=== PATIENT | male | born 1965 | race Two or more races ===

== ENCOUNTER → 2017-10-11 | Emergency (ER) | payer MEDICARE, OTHER ==
[~2017-10-11] VITALS: Ht 170.2 cm; Wt 68.0 kg
[~2017-10-11] MED LIST: BACTRIM DS TAB1 EAC1 ORAL; CEPHALEXIN500 MG ORAL; NKM
[2017-10-11 16:30] VITALS: BP 165/75
--- NOTE | 2017-10-15 14:05 | Emergency Room Report ---
History of Present Illness General Chief Complaint: Skin Rash/Abscess Source: Patient Present Illness HPI 52-year-old male presents ED for evaluation. Patient complains of a redness and hard nodule to his right index finger for the last 2 days. Cannot recall any recent injury. States he is diabetic. Pain is dull, 5 out of 10, nonradiating. Denies any discharge. No other aggravating relieving factors. Denies any other associated symptoms Allergies: Coded Allergies: No Known Allergies (Unverified , 10/11/17) Patient History Past Medical History: DM Past Surgical History: none Pertinent Family History: none Social History: Denies: smoking, alcohol use, drug use Immunizations: UTD Reviewed Nursing Documentation: PMH: Agreed; PSxH: Agreed Nursing Documentation-PMH Past Medical History: No History, Except For Hx Diabetes: Yes Review of Systems All Other Systems: negative except mentioned in HPI Physical Exam Vital Signs Date Time Temp Pulse Resp B/P (MAP) Pulse Ox O2 Delivery O2 Flow Rate FiO2 10/11/17 15:53 98.1 72 16 165/75 97 Room Air 98.1 Sp02 EP Interpretation: reviewed, normal General Appearance: no apparent distress, alert, GCS 15, non-toxic Head: normocephalic Eyes: bilateral eye normal inspection, bilateral eye PERRL ENT: normal ENT inspection Neck: normal inspection Respiratory: normal inspection Cardiovascular #1: normal inspection Gastrointestinal: normal inspection Rectal: deferred Genitourinary: no CVA tenderness Musculoskeletal: other - erythema/induration distal aspect R index finger Neurologic: alert, oriented x3, responsive, motor strength/tone normal, sensory intact, speech normal Psychiatric: normal inspection Skin: other - erythema/induration R index finger, central pustular area Lymphatic: normal inspection Medical Decision Making Diagnostic Impression: Primary Impression: Cellulitis of finger Qualified Codes: L03.011 - Cellulitis of right finger ER Course Hospital Course 52-year-old male presents to ED with redness, swelling to right index finger Differential diagnoses include: Cellulitis, dermatitis, insect bite, abscess Clinical course Patient placed on stretcher. After initial history, physical exam reveals a middle aged male in no acute distress. On exam there is a site for mild erythema and induration to the right index finger. pustular head noted but no discharge. There is no fluctuance. Full range of motion Discussed findings with patient. We will prescribe antibiotics. Warm compresses. Recommend close follow-up with PMD as he is diabetic. Diagnosis - cellulitis of finger stable and discharged to home with prescription for bactrim, Keflex. Instructed to followup with PMD. Instructed return to ED if symptoms recur or worsen Last Vital Signs Date Time Temp Pulse Resp B/P (MAP) Pulse Ox O2 Delivery O2 Flow Rate FiO2 10/11/17 16:30 98.1 16 165/75 97 Room Air 98.1 10/11/17 15:53 72 Status: improved Disposition: HOME, SELF-CARE Condition: Stable Scripts Trimethoprim/Sulfamethoxazole 160/800* (BACTRIM DS TABLET*) 1 Each Tablet 1 TAB ORAL Q12H, #14 TAB 0 Refills Prov: Carlos Oakley MD 10/11/17 Cephalexin* (KEFLEX*) 500 Mg Capsule 500 MG ORAL EVERY 6 HOURS for 7 Days, CAP Prov: Carlos Oakley MD 10/11/17 Referrals: NOT CHOSEN IPA/,REFERRING (PCP) Patient Instructions: Insect Bite, [id number] Carlos Oakley MD Oct 15, 2017 14:05
== END | disposition home or self-care (01) ==
LOC: EMR 16:47
DX: L03.011 Cellulitis of right finger (principal); E11.9 Type 2 diabetes mellitus without complications
CPT/HCPCS: 99283

== ENCOUNTER 2017-12-23 13:56 | Emergency (ER) | payer MEDICARE, OTHER ==
[~2017-12-23] VITALS: Ht 177.8 cm; Wt 68.0 kg
[2017-12-23 14:09] VITALS: BP 151/82
--- NOTE | 2017-12-23 14:12 | Emergency Room Report ---
History of Present Illness General Chief Complaint: Skin Rash/Abscess Source: Patient Present Illness HPI 52-year-old male with no significant past medical history here complaining of extreme pruritus of his entire body for the past few days. Patient claims that have rash started on his left spaces on both upper and lower extremities gradually spreading to the rest of his body. More pruritus at night. Denies pain, fever/chills. Patient also complains of some bleeding lesion has been scratching the lesions. Denies SOB, chest pain, palpitation and all other associated symptoms. Patient is homeless and reports that he has not washed his colds or change his last episode of scabies. Allergies: Coded Allergies: No Known Allergies (Unverified , 10/11/17) Patient History Past Medical History: see triage record Past Surgical History: unable to obtain Immunizations: UTD Reviewed Nursing Documentation: PMH: Agreed; PSxH: Agreed Nursing Documentation-PMH Past Medical History: No History, Except For Hx Diabetes: Yes Review of Systems All Other Systems: negative except mentioned in HPI Physical Exam Vital Signs Date Time Temp Pulse Resp B/P (MAP) Pulse Ox O2 Delivery O2 Flow Rate FiO2 12/23/17 13:59 98.8 95 18 151/82 97 Room Air Sp02 EP Interpretation: reviewed, normal General Appearance: normal inspection, well appearing, no apparent distress, alert Head: normocephalic Eyes: bilateral eye normal inspection, bilateral eye PERRL ENT: normal ENT inspection, hearing grossly normal, normal pharynx Neck: normal inspection, supple Respiratory: normal inspection, lungs clear, no rhonchi, no retraction, no wheezing Cardiovascular #1: normal inspection, no edema, no murmur Gastrointestinal: normal inspection, soft Rectal: deferred Genitourinary: deferred Musculoskeletal: normal range of motion, other - rash all over her body Neurologic: normal inspection, alert Psychiatric: normal inspection, judgement/insight normal, memory normal Skin: warm/dry, well hydrated, rash - Karol-like rash all over body with some excoriation and bleeding over some lesions Lymphatic: normal inspection, no adenopathy Medical Decision Making PA Attestation All diagnosis and treatment plans are reviewed and discussed with my supervising physician Dr. Pedro Diagnostic Impression: Primary Impression: Scabies Additional Impression: Bacterial skin infection ER Course 52-year-old male with no significant past medical history here complaining of extreme pruritus of his entire body for the past few days. Patient claims that have rash started on his left spaces on both upper and lower extremities gradually spreading to the rest of his body. More pruritus at night. Denies pain, fever/chills. Patient also complains of some bleeding lesion has been scratching the lesions. Denies SOB, chest pain, palpitation and all other associated symptoms. Patient is homeless and reports that he has not washed his colds or change his last episode of scabies. Ddx considered but are not limited to scabies, insect bite Vital signs: are WNL, pt. is afebrile H&PE are most consistent with scabies ORDERS: permethrin, Bactroban 2% ED INTERVENTIONS: None required at this time. DISCHARGE: At this time pt. is stable for d/c to home. Will provide printed patient care instructions, and any necessary prescriptions. Care plan and follow up instructions have been discussed with the patient prior to discharge. wash all clothes, change bedding Last Vital Signs Date Time Temp Pulse Resp B/P (MAP) Pulse Ox O2 Delivery O2 Flow Rate FiO2 12/23/17 14:09 98.8 18 151/82 97 Room Air 12/23/17 13:59 95 Disposition: HOME, SELF-CARE Condition: Stable Scripts Mupirocin (BACTROBAN CR) 15 Gm Cream..g. 1 APPLIC TOPIC THREE TIMES A DAY, #15 GM Prov: Reid Lopez 12/23/17 Permethrin* (ELIMITE*) 60 Gm Cream..g. 1 APPLIC TOPIC ONCE for scabies for 1 Day, #100 GM 0 Refills Apply cream from head to toe; leave on for 8-14 hours before washing off with water; may reapply in 1 week if live mites appear. Prov: Reid Lopez 12/23/17 Patient Instructions: Scabies, Pediatric Additional Instructions: apply medication to although very her body as directed, as wash all clothes, change bedding Reid Lopez Dec 23, 2017 14:12
[2017-12-23] MEDS ORDERED: PERMETHRIN60 GM TOPIC (14:14)
[2017-12-23] MEDS ORDERED: BACTROBAN15 GM TOPIC (14:14)
[2017-12-23 14:22] VITALS: BP 151/82
== END 2017-12-23 14:22 | disposition home or self-care (01) ==
LOC: EMR 14:10
DX: B86 Scabies (principal); B96.89 Other specified bacterial agents as the cause of diseases classified elsewhere; L29.8 Other pruritus; E11.9 Type 2 diabetes mellitus without complications
CPT/HCPCS: 99283